=== PATIENT | male | born 1980 | race Caucasian/White ===

== ENCOUNTER 2022-08-27 16:18 | Emergency (ER) | payer OTHER, SELFPAY ==
[2022-08-27 16:25] VITALS: BP 154/90; PULSE 67; RESP 12; TEMP 36.4; O2SAT 97; BMI 34.2
--- NOTE | 2022-08-27 16:31 | ED_ITS ---
HPI - Dizziness General: Chief Complaint: Dizziness Stated Complaint: dizzy, nausea Time Seen by Provider: 08/27/22 16:31 History of Present Illness: HPI Narrative: 42-year-old gentleman presenting with dizziness and nausea. Onset of symptoms was last night and sudden onset with position change. No associated nausea vomiting. Course of symptoms has persisted. Intensity is moderate-severe and worse with head movement. No other specific changes in health, exacerbating, or alleviating factors identified. Onset (ago): hour(s) Timing: sudden onset Severity: moderate Description: sense of movement and room spinning Exacerbating factors: movement/ambulation, change in body position and keeping eyes open Review of Systems General: Reports: 10 or more systems reviewed and unremarkable except in HPI and below PFSH ED PFSH: Medical History (Updated 09/08/22 @ 23:14 by Cosmo Hurst MD) No significant past medical history Surgical History (Updated 09/08/22 @ 23:14 by Cosmo Hurst MD) No significant past surgical history Physical Exam Const: COMMON NORMALS: patient oriented x3 and alert GENERAL APPEARANCE: cooperative and well developed HENMT: COMMON NORMALS: normocephalic, atraumatic, external ears normal, EAC's normal and TM's normal bilaterally HEAD & SCALP: normocephalic and atraumatic EXTERNAL EAR: Yes external ears normal EXTERNAL AUDITORY CANAL: EAC's normal TYMPANIC MEMBRANE: TM's normal bilaterally THROAT: posterior oropharynx normal Eye: COMMON NORMALS: conjunctivae normal CONJUNCTIVA: Yes conjunctivae normal SCLERA: sclerae normal Neck/C-Spine: COMMON NORMALS: supple GENERAL: Yes trachea midline Resp: COMMON NORMALS: clear to auscultation bilaterally EFFORT & INSPECTION: Yes able to speak in complete sentences AUSCULTATION: clear to auscultation bilaterally Cardio: COMMON NORMALS: regular rate and regular rhythm RATE: regular rate RHYTHM: regular rhythm GI: COMMON NORMALS: Soft to palpation PALPATION: Yes Soft to palpation and No Tenderness to palpation present (GI) Extremity: GENERAL: Yes normal exam except as noted and No edema Neuro: COMMON NORMALS: patient oriented x3, CN's II-XII intact bilaterally, moves all extremities, no focal motor deficits and no sensory deficits noted SENSORIUM/ORIENTATION: Yes alert and No Orientation impaired Psych: COMMON NORMALS: mental status grossly normal and Normal thought process present THOUGHT PROCESS: Normal thought process present Course Vital Signs: Vital signs: Vital Signs Temperature 97.6 F 08/27/22 16:25 Pulse Rate 67 08/27/22 16:25 Respiratory Rate 12 08/27/22 16:25 Blood Pressure 154/90 08/27/22 16:25 Pulse Oximetry 97 08/27/22 16:25 Oxygen Delivery Me thod 08/27/22 16:25 MDM - Dizziness Medical Decision Making 42-year-old gentleman presenting with dizziness and nausea. Description of symptoms is consistent with peripheral cause amd nystagmus without other abnormality identified on neurologic exam. No meningitic symptoms. Patient significantly improved with treatment with near complete resolution of symptoms. Most likely cause of symptoms is peripheral cause of vertigo. The results of ED evaluation were discussed with the patient including prescriptions and/or symptomatic cares (if applicable) including appropriate and responsible use, followup plan, and return precautions. The patient verbalized understanding and felt safe for discharge. Medical Records I reviewed the patient's medical records. Lab Data I reviewed the patient's lab results. Discharge Plan Discharge Patient Disposition: Home Clinical Impression: Vertigo Condition: Stable Prescriptions: New Reglan 10 mg tablet 10 mg PO Q6H PRN (Reason: dizziness or vertigo) Qty: 14 0RF No Action Prilosec 40 mg Capsule,Delayed Release(Dr/Ec) 40 mg PO QAM Tylenol Ex Str Rapid Release 500 mg Tablet 1,000 mg PO Q6H PRN (Reason: Pain) trazodone 100 mg Tablet 50 mg PO BEDTIME PRN (Reason: Sleep) meclizine 25 mg Tablet 25 mg PO BID PRN (Reason: Dizziness) Adderall XR 15 mg Capsule,Extended Release 24hr 15 mg PO QAM Discharge Orders: Discharge ED (Routine); Ordered 08/27/22 Ordered By: Cosmo Hurst Discharge Diet: Usual diet Discharge Activity: Increase activity as tolerated Patient Instructions: Vertigo (ED) Activity Restrictions/Additional Instructions: Thank you for visiting the emergency department. You were seen and evaluated for dizziness. The exact cause of your symptoms is unclear though likely related to peripheral cause of dizziness such as vertigo. We are pleased that you end improvement in the emergency department. Please follow-up with your primary care provider. I will message case management for referral for vestibular therapy. Return to the emergency department for anything we discussed or anything else that you are concerned about and feel needs emergency department evaluation. Coding Level of Care Code ED Optical Instrument Assembler for Lakhwinder Nicolas
[2022-08-27] MEDS: metoclopramide 5 mg/mL SDV 2 mL 10 MG IVP (18:05)
[2022-08-27] MEDS: diphenhydrAMINE 50 mg/mL SDV 1mL 25 MG IVP (18:07)
[2022-08-27] MEDS: ketorolac 30 mg/mL INJ 15 MG IVP (18:08)
[2022-08-27] MEDS: sodium chloride 0.9% 1,000 ML 999 ML IV (18:13)
== END 2022-08-27 19:56 | disposition home or self-care (01) ==
PROVIDERS: Emergency Provider Emergency Medicine
DX: R42 Dizziness and giddiness (principal)
CPT/HCPCS: 96365; 96375; 99284; J1200; J1885; J2765; J3475; J7030

== ENCOUNTER 2023-07-05 16:46 | Observation (INO) | payer OTHER, SELFPAY ==
[2023-07-05 16:48] VITALS: BP 167/126; PULSE 80; RESP 16; TEMP 36.7; O2SAT 96; BMI 38.2
--- NOTE | 2023-07-05 17:52 | PC.NURSE ---
Pt moved to room 13 at MD request. Pt does not need an ER psych room at this time, per MD.
--- NOTE | 2023-07-05 17:55 | ED.C_ITS ---
HPI - Psych General: Chief Complaint: Psychiatric Symptoms Stated Complaint: MHE, sent from [place] Time Seen by Provider: 07/05/23 17:23 Source: patient Mode of arrival: ambulatory Limitations: no limitations History of Present Illness: 43 yo male who is a former with a hx of ptsd. he states he has had periods of blacking out and becoming violent and having suicidal ideations per . he is on cymbalta states that the last 2 days he had an episode but is back to his normal self today. he states that he is voluntary wanting admission for help. Associated symptoms: Reports depression Review of Systems Const: Denies: fever(s) or chills ENMT: Denies: throat pain or dental pain Card: Denies: chest pain Resp: Denies: dyspnea GI: Denies: abdominal pain, nausea, vomiting or diarrhea Musc: Denies: neck pain or back pain Skin/Breast: Denies: rash Neuro: Denies: headache(s) Psych: Reports: depression and mood swings [facility] ED PFSH: Medical History No significant past medical history Surgical History No significant past surgical history Physical Exam Const: COMMON NORMALS: no acute distress, patient oriented x3 and healthy appearing HENMT: COMMON NORMALS: normocephalic and atraumatic HEAD & SCALP: normocep halic and atraumatic Eye: COMMON NORMALS: conjunctivae normal CONJUNCTIVA: Yes conjunctivae normal Neck/C-Spine: COMMON NORMALS: full ROM and supple Chest: COMMONS NORMALS: normal inspection of the chest Resp: COMMON NORMALS: normal respiratory effort Cardio: COMMON NORMALS: regular rate, regular rhythm and No murmurs present (Cardio) RATE: regular rate RHYTHM: regular rhythm Extremity: COMMON NORMALS: normal to inspection and full ROM Neuro: COMMON NORMALS: patient oriented x3, moves all extremities and no focal motor deficits Psych: COMMON NORMALS: mental status grossly normal, Normal thought process present and cooperative THOUGHT PROCESS: Normal thought process present Skin: COMMON NORMALS: no rashes or lesions noted and no wounds GENERAL SKIN EXAM: no rashes or lesions noted Course Vital Signs: Vital signs: Vital Signs Temperature 97.6 F 07/05/23 21:11 Pulse Rate 69 09/26/23 21:12 Respiratory Rate 18 07/05/23 21:12 Blood Pressure 156/113 07/05/23 21:12 Pulse Oximetry 96 07/05/23 21:12 Oxygen Delivery Me thod Room Air 07/05/23 21:11 MDM - Psych Medical Decision Making Patient presents here with history of PTSD and blacking out becoming violent having suicidal thoughts he is calm and at his baseline currently he is voluntarily wanting to be admitted as he states these episodes are becoming more frequently I did speak to the psychiatrist and will admit at this time. Medical Records I reviewed the patient's medical records. Lab Data I reviewed the patient's lab results. 07/05/23 18:21 07/05/23 18:21 Laboratory Results WBC 9.44 10^3/uL (3.29-11.43) 07/05/23 18:21 RBC 5.31 10^6/uL (3.85-5.65) 07/05/23 18:21 Hgb 14.30 g/dL (11.27-16.99) 07/05/23 18:21 Hct 42.9 % (37-53) 07/05/23 18:21 MCV 80.8 fl (82-101) L 07/05/23 18:21 MCH 26.9 pg (27-33) L 07/05/23 18:21 MCHC 33.3 g/dL (30-55) 07/05/23 18:21 RDW 14.2 % (12.1-15.1) 07/05/23 18:21 Plt Count 288 10^3/cmm (157-399) 07/05/23 18:21 MPV 10.2 fL (7.4-10.4) 07/05/23 18:21 Neut % (Auto) 53.3 % 07/05/23 18:21 Lymph % (Auto) 37.4 % 07/05/23 18:21 [place] % (Auto) 6.8 % 07/05/23 18:21 Eos % (Auto) 1.7 % 07/05/23 18:21 Baso % (Auto) 0.5 % 07/05/23 18:21 Neut # (Auto) 5.03 10^3/uL (1.8-7.7) 07/05/23 18:21 Lymph # (Auto) 3.5 10^3/uL (0.8-4.8) 07/05/23 18:21 [place] # (Auto) 0.6 10^3/uL (0.2-0.9) 07/05/23 18:21 Eos # (Auto) 0.2 10^3/uL (0.0-0.8) 07/05/23 18:21 Baso # (Auto) 0.1 10^3/uL (0.0-0.1) 07/05/23 18:21 Nucleated RBC % (auto) 0 % 07/05/23 18:21 Nucleated RBCs # 0.0 /100WBC 07/05/23 18:21 Sodium 139 mmol/L (136-145) 07/05/23 18:21 Potassium 4.1 mmol/L (3.5-5.1) 07/05/23 18:21 Chloride 103 mmol/L (98-107) 07/05/23 18:21 Carbon Dioxide 28 mmol/L (22-29) 07/05/23 18:21 Anion Gap 12.1 (5-19) 07/05/23 18:21 BUN 11 mg/dL (6-20) 07/05/23 18:21 Creatinine 1.0 mg/dL (0.7-1.2) 07/05/23 18:21 GFR Calculation 81.9 mL/min (90-130) L 07/05/23 18:21 Glucose 96 mg/dL (65-115) 07/05/23 18:21 Calculated Osmolality 287 mOsm/kg (285-295) 07/05/23 18:21 Calcium 9.2 mg/dL (8.5-10.5) 07/05/23 18:21 Total Bilirubin 0.4 mg/dL (0.15-1.2) 07/05/23 18:21 AST 20 U/L (0-40) 07/05/23 18:21 ALT 34 U/L (0-41) 07/05/23 18:21 Alkaline Phosphatase 73 U/L (40-130) 07/05/23 18:21 Total Protein 7.3 g/dL (6.6-8.7) 07/05/23 18:21 Albumin 4.3 g/dL (3.5-5.2) 07/05/23 18:21 Globulin 3.0 g/dL (1.3-4.6) 07/05/23 18:21 Salicylates < 0.3 mg/dL (3-10) L 07/05/23 18:21 Urine Opiates Screen Negative ng/mL (Negative) 07/05/23 18:33 Acetaminophen < 5.0 ug/mL (10-30) L 07/05/23 18:21 Ur Barbiturates Screen Negative ng/mL (Negative) 07/05/23 18:33 Ur Phencyclidine Scrn Negative ng/mL (Negative) 07/05/23 18:33 Ur Amphetamines Screen Negative ng/mL (Negative) 07/05/23 18:33 U Benzodiazepines Scrn Positive ng/mL (Negative) H 07/05/23 18:33 Urine Cocaine Screen Negative ng/mL (Negative) 07/05/23 18:33 U Marijuana (THC) Screen Negative ng/mL (Negative) 07/05/23 18:33 Ethyl Alcohol < 10 mg/dL (0-10) 07/05/23 18:21 No radiology studies performed this visit Discharge Plan Discharge Patient Disposition: Admitted As Inpatient Admit Provider: Seferino Valdovinos Clinical Impression: Depression, Acute post-traumatic stress disorder Condition: Stable Coding Level of Care Code ED Grounds Supervisor for Lakhwinder Nicolas
[2023-07-05 18:32] LABS: Basophils # 0.1 10^3/uL (0.0-0.1); Basophils % 0.5 %; Eosinophils # 0.2 10^3/uL (0.0-0.8); Eosinophils % 1.7 %; Hematocrit 42.9 % (37-53); Lymphocytes # 3.5 10^3/uL (0.8-4.8); Lymphocytes % 37.4 %; Mean Corpuscular HGB Conc 33.3 g/dL (30-55); Mean Corpuscular Hemoglobin 26.9 pg (27-33); Mean Corpuscular Volume 80.8 fl (82-101); Mean Platelet Volume 10.2 fL (7.4-10.4); Monocytes # 0.6 10^3/uL (0.2-0.9); Monocytes % 6.8 %; Neutrophils # 5.03 10^3/uL (1.8-7.7); Neutrophils % 53.3 %; Nucleated Red Blood Cells % 0 %; Platelet Count 288 10^3/cmm (157-399); Red Blood Count 5.31 10^6/uL (3.85-5.65); Red Cell Distribution Width 14.2 % (12.1-15.1); White Blood Count 9.44 10^3/uL (3.29-11.43)
[2023-07-05 18:49] LABS: Amphetamines Screen Urine Negative (Negative); Barbiturates Screen Urine Negative (Negative); Benzodiazepines Screen Urine Positive (Negative); Cocaine Screen Urine Negative (Negative); Opiate Screen Urine Negative (Negative); PCP Screen Urine Negative (Negative); THC Screen Urine Negative (Negative)
[2023-07-05 18:51] LABS: Alanine Aminotransferase 34 U/L (0-41); Albumin Level 4.3 g/dL (3.5-5.2); Alkaline Phosphatase 73 U/L (40-130); Anion Gap 12.1 (5-19); Aspartate Amino Transferase 20 U/L (0-40); Blood Urea Nitrogen 11 mg/dL (6-20); Calcium 9.2 mg/dL (8.5-10.5); Carbon Dioxide 28 mmol/L (22-29); Chloride 103 mmol/L (98-107); Glomerular Filtration Rate 81.9 mL/min (90-130); Glucose 96 mg/dL (65-115); Osmolality Calculated 287 mOsm/kg (285-295); Potassium 4.1 mmol/L (3.5-5.1); Sodium 139 mmol/L (136-145); Total Bilirubin 0.4 mg/dL (0.15-1.2); Total Protein 7.3 g/dL (6.6-8.7)
[2023-07-05 18:57] LABS: Acetaminophen < 5.0 ug/mL (10-30); Alcohol Level < 10 mg/dL (0-10); Salicylate < 0.3 mg/dL (3-10)
[2023-07-05 20:58] VITALS: BP 160/105; PULSE 73; RESP 20; TEMP 36.4; O2SAT 96
[2023-07-05 21:11] VITALS: BP 160/105; PULSE 73; RESP 20; TEMP 36.4; O2SAT 96
[2023-07-05 21:12] VITALS: BP 156/113; PULSE 69; RESP 18; O2SAT 96
--- NOTE | 2023-07-05 21:33 | PC.NURSE ---
Pt arrived from ER w/2 nurses at side. Pt is pleasant and cooperative w/care. Assessment completed and pt shown to room.
[2023-07-06 06:00] VITALS: BP 108/70; PULSE 71; RESP 16; TEMP 36.7; O2SAT 95
--- NOTE | 2023-07-06 09:03 | PC.OT ---
OT EVALUATION ATTEMPTED; PATIENT CURRENTLY VISITING WITH THE DOCTOR. WILL ATTEMPT AGAIN AT A LATER TIME.
[2023-07-06] MEDS: acetaminophen 500 mg Tablet 1000 MG PO (13:06)
[2023-07-06 14:00] VITALS: BP 111/67; PULSE 67; RESP 17; TEMP 36.5; O2SAT 96
--- NOTE | 2023-07-06 14:09 | P.NPUHP_ITS ---
Providers/Chief Complaint Admitting Physician: Seferino Valdovinos MD Primary Care Provider: Magui Ochoa MD Chief Complaint: MHE, sent from [place] HPI NPU History of Present Illness Michael Orta is a 43 year old male who has a history of PTSD who arrived into the emergency department at the request of the staff at [facility] after the patient had apparently drafted an obituary for himself. Patient was admitted onto the neuropsychiatric unit for further evaluation and treatment. Patient describes having been previously a [employer] with 80% service connection for posttraumatic stress disorder that occurred during his time in [place] and [place] during combat related duty. The patient had reported that he has been retired for the past 2 and half years from the . 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 He reports having engaged in frequent avoidance regarding his trauma. He reports having repeated flashbacks and nightmares with reported hypervigilance that has not changed over the last few years. He reports difficulties with being in crowds. He has reported having periods of intermittent depression but reports no suicidal ideation. He reports having problems being in large crowds. He reports being easily startled. He reports stating that his life is good and that he has much to look forward to at this time. The patient has reported particularly having difficulties with having PTSD related blackouts where for several hours up to 2 days he has without any clear trigger had periods where he wakes up at an unexpected locat ion and will engage in complex activities including driving a car as he had described having gone to [place] for greater than 24 hours. He has described at times doing unusual things. He reports that this had occurred on 07/04/2023 when after work he had found himself in [place] in his car and reports having no recollection of how he got to [place]. He had reported no particular triggers no new stressors that had caused this problem. He reports that he returned home that night and went to work the next day. He reports being called later that afternoon on 07/05/2023 and was told to come to an appointment at the [facility] where his had revealed to him that the patient had written through a text message a an obituary for himself that the patient does not recall having ever completed. The patient had reported that the only significant changes that it occurred was that he had previously been taking Adderall XR 15 mg daily for several years to help with his problems with concent ration and this had been discontinued 1 month ago and the patient had been started on Cymbalta which is currently at 40 mg daily. He had reported having these problems with blackouts over the past several years. Inpatient psychiatric history: None Outpatient psychiatric history: He had reported being diagnosed with PTSD while in the . He reports that he sees Dr. Graham through the [facility] for medication management for psychiatric services. He also reports having a outpatient therapist Moo Lambert at the [facility] office building in [place]. Drug and alcohol history: None Allergies: No known drug allergies Medical history: None Surgical history: Broken ankle in 2005 Current medications: Cymbalta 40 mg at night, trazodone as needed for sleep Family psychiatric history: None Social history: Patient was born in [place] and raised in an intact family by his biological parents and had 3 siblings. He reports having graduated high school and entered into the [employer] where he had served for approximately 20 years. He has been twice with his first marriage lasting 13 years with 2 children that live with their mother. 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 He had reported no prior history of sexual physical or emotional abuse during childhood with no history of any learning disorders. Meds NPU Home Medications Medication Instructions Recorded Confirmed Last Taken Type acetaminophen 500 mg tablet 1,000 mg PO Q6H PRN Fever Or Pain 08/27/22 07/05/23 08/27/22 History trazodone 100 mg tablet 50 mg PO BEDTIME PRN Sleep 08/27/22 07/05/23 07/02/23 History duloxetine 20 mg capsule,delayed 40 mg PO BEDTIME 07/05/23 07/05/23 07/04/23 21:00 History release (Cymbalta) ibuprofen 600 mg tablet 600 mg PO Q6H PRN Pain 07/05/23 07/05/23 Unknown History Allergies Allergy/AdvReac Type Severity Reaction Status Date / Time No Known Allergies Allergy Verified 08/27/22 16:34 PFSH NPU 2 PFSH: Medical History No significant past medical history Surgical History No significant past surgical history Mental Status Exam MSE Comments: Patient is a healthy young male with fair hygiene and normal gait with no evidence of any abnormal involuntary motor movements tics or tremors appreciated. He did appear very sensitive to noises and appeared easily startled and put on edge. His mood was described as okay. His affect appeared restricted in range and mood incongruent. His thought process was linear logical and goal-directed. His thought content showed no evidence of active homicidal or suicidal ideation. He did not appear to be responding internal stimuli. He denied any auditory or visual hallucinations. There was no evidence of delusional thinking. His attention span appeared adequate. His recent and remote memory are grossly intact. His insight was poor. His judgment appeared limited. His impulse control appeared guarded at this time. Vitals/I&O/Wt Last Vital Signs Temp 98.0 F 07/06/23 06:00 Pulse 71 07/06/23 06:00 Resp 16 07/06/23 06:00 BP 108/70 07/06/23 06:00 Pulse Ox 95 07/06/23 06:00 O2 Del Method Room Air 07/06/23 06:00 Weight last 48 hrs Weight 131.542 kg Data NPU 07/05/23 18:21 07/05/23 18:21 A&P Assessment and plan (1) PTSD (post-traumatic stress disorder): (2) Depression: Plan 43-year-old male with a history of PTSD admitted due to concerns of suicidal ideation having written a suicide note in the context of having a blackout. Patient would likely benefit from a brief inpatient hospitalization with medication adjustment. ?1. Encourage individual, group and milieu therapy. ?2.Recommend sober living treatment at the highest level of care to which the patient is willing to commit. 3.Continue q-15 minute checks for safety.? 4. Increase Cymbalta 60mg at night. Involuntary Hold Information 96 Hour Hold: 96 Hour Involuntary Admission: No Attestations NPU Medical Necessity Statement*: Inpatient hospitalization is medically necessary and deemed to ?be ?the clinically appropriate intervention ?at this time.? We will monitor/initiate medications and make changes as indicated.? The patient will be in the hospital for over 2 midnights.? The patient?s likely length of stay 2-4 days. Coding Level of Care Code Acute Code for Chg Fwd Diagnoses PTSD (post-traumatic stress disorder) F43.10 Depression F32.A
--- NOTE | 2023-07-06 19:57 | PC.NURSE ---
Pt called highly anxious and tearful regarding pt's phone call to her making statements that this was all her fault that he was here. Upon talking w/the pt he states that he doesn't need to be here, this is a long-term and it is not doing him any good. Notified Dr. Perez regarding pt's voluntary status and Dr. Perez stated that he was free to leave AMA or he would d/c him in the am. Pt remains highly anxious pt is demanding that he discharges from this facility tonight. Will notify .
--- NOTE | 2023-07-06 20:03 | PC.NURSE ---
Spoke to pt's and she states she will be here to get him. Awaiting pt's arrival.
--- NOTE | 2023-07-06 20:19 | PC.NURSE ---
Pt's here to get pt. AMA paperwork signed. Pt leaving w/ smile on face. No distress present on d/c.
--- NOTE | 2023-07-06 21:15 | W.PM.NPUDCS ---
Diagnoses at Discharge Discharge Diagnosis (1) PTSD (post-traumatic stress disorder): Status: Acute (2) Depression: Status: Acute Reason for Visit Reason for Visit: MHE, sent from [place] Brief History: History of Present Illness Michael Orta is a 43 year old male who has a history of PTSD who arrived into the emergency department at the request of the staff at [facility] after the patient had apparently drafted an obituary for himself.? Patient was admitted onto the neuropsychiatric unit for further evaluation and treatment.? 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 The patient had reported that he has been retired for the past 2 and half years from the .? 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 He reports having engaged in frequent avoidance regarding his trauma.? He reports having repeated flashbacks and nightmares with reported hypervigilance that has not changed over the last few years.? He reports difficulties with being in crowds.? He has reported having periods of intermittent depression but reports no suicidal ideation.? He reports having problems being in large crowds.? He reports being easily startled.? He reports stating that his life is good and that he has much to look forward to at this time.? The patient has reported particularly having difficulties with having PTSD related blackouts where for several hours up to 2 days he has without any clear trigger had periods where he wakes up at an unexpected location and will engage in complex activities including? driving a car as he had described having gone to [place] for greater than 24 hours.? He has described at times doing unusual things.? He reports that this had occurred on 07/04/2023 when after work he had found himself in [place] in his car and reports having no recollection of how he got to [place].? He had reported no particular triggers no new stressors that had caused this problem.? He reports that he returned home that night and went to work the next day.? He reports being called later that afternoon on 07/05/2023 and was told to come to an appointment at the [place] where his had revealed to him that the patient had written through a text message a an obituary for himself that the patient does not recall having ever completed.? The patient had reported that the only significant changes that it occurred was that he had previously been taking Adderall XR 15 mg daily for several years to help with his problems with concentration and this had been discontinued 1 month ago and the patient had been started on Cymbalta which is currently at 40 mg daily.? He had reported having these problems with blackouts over the past several years. Inpatient psychiatric history: None Outpatient psychiatric history: He had reported being diagnosed with PTSD while in the .? He reports that he sees Dr. Graham through the [place] for medication management for psychiatric services.? He also reports having a outpatient therapist Moo Lambert at the [facility] office building in [place]. Drug and alcohol history: None Allergies: No known drug allergies Medical history: None Surgical history: Broken ankle in 2005 Current medications: Cymbalta 40 mg at night, trazodone as needed for sleep Family psychiatric history: None Social history: Patient was born in [place] and raised in an intact family by his biological parents and had 3 siblings.? He reports having graduated high school and entered into the [employer] where he had served for approximately 20 years.? He has been twice with his first marriage lasting 13 years with 2 children that live with their mother.? 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 He had reported no prior history of sexual physical or emotional abuse during childhood with no history of any learning disorders. Hospital Course Hospital Course Patient admitted, then left Against Medical Advice. Involuntary Hold Information 96 Hour Hold: 96 Hour Involuntary Admission: No Mental Status Exam MSE Comments: Patient is a healthy young male with fair hygiene and normal gait with no evidence of any abnormal involuntary motor movements tics or tremors appreciated. He did appear very sensitive to noises and appeared easily startled and put on edge. His mood was described as okay. His affect appeared restricted in range and mood incongruent. His thought process was linear logical and goal-directed. His thought content showed no evidence of active homicidal or suicidal ideation. He did not appear to be responding internal stimuli. He denied any auditory or visual hallucinations. There was no evidence of delusional thinking. His attention span appeared adequate. His recent and remote memory are grossly intact. His insight was limited. His judgment appeared adequate. His impulse control appeared fair. Discharge Data Studies Completed and Pending: Laboratory Results WBC 9.44 10^3/uL (3.2 9-11.43) 07/05/23 18:21 RBC 5.31 10^6/uL (3.8 5-5.65) 07/05/23 18:21 Hgb 14.30 g/dL (11.27 -16.99) 07/05/23 18:21 Hct 42.9 % (37-53) 07/05/23 18:21 MCV 80.8 fl (82-101) L 07/05/23 18:21 MCH 26.9 pg (27-33) L 07/05/23 18: MCHC 33.3 g/dL (30-55) 07/05/23 18: RDW 14.2 % (12.1-15.1 ) 07/05/23 18:21 Plt Count 288 10^3/cmm (157 -399) 07/05/23 18: MPV 10.2 fL (7.4-10.4 ) 07/05/23 18:21 Neut % (Auto) 53.3 % 07/05/23 18:21 Lymph % (Auto) 37.4 % 07/05/23 18:21 [place] % (Auto) 6.8 % 07/05/23 18:21 Eos % (Auto) 1.7 % 07/05/23 18:21 Baso % (Auto) 0.5 % 07/05/23 18: Neut # (Auto) 5.03 10^3/uL (1.8 -7.7) 07/05/23 18: Lymph # (Auto) 3.5 10^3/uL (0.8- 4.8) 07/05/23 18:21 [place] # (Auto) 0.6 10^3/uL (0.2- 0.9) 07/05/23 18:21 Eos # (Auto) 0.2 10^3/uL (0.0- 0.8) 07/05/23 18:21 Baso # (Auto) 0.1 10^3/uL (0.0- 0.1) 07/05/23 18: Nucleated RBC % (a uto) 0 % 07/05/23 18:21 Nucleated RBCs # 0.0 /100WBC 07/05/23 18:21 Sodium 139 mmol/L (136-1 45) 07/05/23 18:21 Potassium 4.1 mmol/L (3.5-5 .1) 07/05/23 18:21 Chloride 103 mmol/L (98-10 7) 07/05/23 18:21 Carbon Dioxide 28 mmol/L (22-29) 07/05/23 18:21 Anion Gap 12.1 (5-19) 07/05/23 18:21 BUN 11 mg/dL (6-20) 07/05/23 18:21 Creatinine 1.0 mg/dL (0.7-1. 2) 07/05/23 18:21 GFR Calculation 81.9 mL/min (90-1 30) L 07/05/23 18:21 Glucose 96 mg/dL (65-115) 07/05/23 18:21 Calculated Osmolal ity 287 mOsm/kg (285- 295) 07/05/23 18:21 Calcium 9.2 mg/dL (8.5-10 .5) 07/05/23 18:21 Total Bilirubin 0.4 mg/dL (0.15-1 .2) 07/05/23 18:21 AST 20 U/L (0-40) 07/05/23 18:21 ALT 34 U/L (0-41) 07/05/23 18:21 Alkaline Phosphata se 73 U/L (40-130) 07/05/23 18:21 Total Protein 7.3 g/dL (6.6-8.7 ) 07/05/23 18:21 Albumin 4.3 g/dL (3.5-5.2 ) 07/05/23 18:21 Globulin 3.0 g/dL (1.3-4.6 ) 07/05/23 18:21 Salicylates < 0.3 mg/dL (3-10 ) L 07/05/23 18:21 Urine Opiates Scre en Negative ng/mL (N egative) 07/05/23 18:33 Acetaminophen < 5.0 ug/mL (10-3 0) L 07/05/23 18:21 Ur Barbiturates Sc reen Negative ng/mL (N egative) 07/05/23 18:33 Ur Phencyclidine S crn Negative ng/mL (N egative) 07/05/23 18:33 Ur Amphetamines Sc reen Negative ng/mL (N egative) 07/05/23 18:33 U Benzodiazepines Scrn Positive ng/mL (N egative) H 07/05/23 18:33 Urine Cocaine Scre en Negative ng/mL (N egative) 07/05/23 18:33 U Marijuana (THC) Screen Negative ng/mL (N egative) 07/05/23 18:33 Ethyl Alcohol < 10 mg/dL (0-10) 07/05/23 18:21 Vitals: Last Vital Signs Temp 97.7 F 07/06/23 14:00 Pulse 67 07/06/23 14:00 Resp 17 07/06/23 14:00 BP 111/67 07/06/23 14:00 Pulse Ox 96 07/06/23 14:00 O2 Del Method Room Air 07/06/23 14:00 Discharge Plan Discharge Patient Disposition: Left Against Medical Advice Condition: Stable Prescriptions: No Action ibuprofen 600 mg Tablet 600 mg PO Q6H PRN (Reason: Pain) Cymbalta 20 mg Capsule,Delayed Release(Dr/Ec) 40 mg PO BEDTIME acetaminophen [Tylenol Ex Str Rapid Release] 500 mg Tablet 1,000 mg PO Q6H PRN (Reason: Fever Or Pain) trazodone 100 mg Tablet 50 mg PO BEDTIME PRN (Reason: Sleep) Referrals: [facility]-Dr. Ga [Other] - 07/08/23 9:30 am (Follow up telehealth in office. ) [facility]Moo Lambert [Other] - 07/15/23 3:30 am (Follow up with therpaist. ) Magui Ochoa MD [Primary Care Provider] - 07/08/23 8:30 am (Follow up ) Discharge Diet: Usual diet Discharge Activity: Resume usual activity Discharge Attestations NPU Time Spent in Discharge Care*: less than 30 min Specific Discharge Activities: Specific discharge activities: educating patient and documenting/other paperwork Coding Level of Care Code Acute Chg FW DC note Diagnoses PTSD (post-traumatic stress disorder) F43.10 Depression F32.A
== END 2023-07-06 20:00 | disposition left against medical advice (07) ==
LOC: ER 17:59 → NP 21:17
PROVIDERS: Admitting Provider Psychiatry & Neurology Psychiatry; Emergency Provider Emergency Medicine; PCP Family Medicine; Visit Provider Psychiatry & Neurology Psychiatry
DX: F43.10 Post-traumatic stress disorder, unspecified (principal); F32.A Depression, unspecified
CPT/HCPCS: 36415; 80053; 80306; 80307; 85025; 97165; 99285; G0378

== ENCOUNTER 2024-06-04 20:00 | Outpatient (CLI) | payer OTHER, SELFPAY | END 2024-06-04 20:01 | disposition home or self-care (01) | LOC: SLEEP 06-05 03:47 | PROVIDERS: PCP Family Medicine; Visit Provider Family Medicine | DX: G47.33 Obstructive sleep apnea (adult) (pediatric) (principal) | CPT/HCPCS: 95810 ==

== ENCOUNTER 2024-09-24 20:00 | Outpatient (CLI) | payer OTHER, SELFPAY | END 2024-09-24 20:01 | disposition home or self-care (01) | LOC: SLEEP 23:28 | PROVIDERS: PCP Family Medicine; Visit Provider Family Medicine | DX: G47.33 Obstructive sleep apnea (adult) (pediatric) (principal); Z99.89 Dependence on other enabling machines and devices | CPT/HCPCS: 95811 ==